=== PATIENT | male | born 1960 | race Caucasian/White ===

== ENCOUNTER 2019-07-06 07:50 | Day surgery (SDC) | payer BC ==
[~2019-07-06 07:50] MED LIST: Lactated Ringers 1,000 ML IV SCH; Sodium Chloride 0.9% 10 ML Syringe FLUSH PRN
[2019-07-06] MEDS ORDERED: Lactated Ringers 1,000 ML IV SCH (08:30)
[2019-07-06] MEDS ORDERED: fentaNYL 100 MCG/2 ML SDV ONE (09:10)
[2019-07-06] MEDS ORDERED: Propofol 200 MG/20 ML SDV ONE ×2 (09:10→10:25)
[2019-07-06 11:06] VITALS: BP 113/77; PULSE 64
--- NOTE | 2019-07-06 17:26 | OR ---
DATE OF SURGERY: 07/06/2019. REFERRING PROVIDER: Keisha Willett DO. PRE-OPERATIVE DIAGNOSES: Positive history of colon polyps with previous rectal adenoma in 12/2013. This is the second colonoscopy. There is no known family history of colon cancer or colon polyps. POST-OPERATIVE DIAGNOSES: Normal appearing colon and distal ileum. PROCEDURE: Colonoscopy. SURGEON: Asaf España M.D. ANESTHESIA: Monitored anesthesia care. BOWEL PREP: Fair to good. The patient did have corn noted in the rectal area and distal sigmoid. Otherwise, visualization of colon was good. Anupam is a 59-year-old male who was brought to the endoscopy suite after discussing risks and benefits of the procedure. Informed consent was obtained for conscious sedation and colonoscopy with or without biopsy and/or polypectomy. We also discussed possibility of missed lesions. Pre-procedure exam was unremarkable. IV, oxygen, and monitors were placed. The patient was placed in the left lateral decubitus position. Sedation was administered and a digital rectal exam was performed which was unremarkable. Colonoscope was passed into the rectum and slowly advanced all the way to the cecum. Cecum was viewed and photographed. Ileocecal valve was intubated and distal ileum was normal in appearance. The colonoscope was slowly withdrawn and the mucosa was closed observed in a direct circumferential manner. The ascending colon was unremarkable. The transverse colon was unremarkable. The descending colon was unremarkable. The sigmoid colon was unremarkable. Retroflexion was performed and rectal mucosa was unremarkable. Scope was removed. The patient tolerated the procedure well. The patient was monitored until that baseline status. Discharge instructions were reviewed and the patient was discharged in good condition. COMPLICATIONS: None. TOTAL TIME: 18 minutes. ESTIMATED BLOOD LOSS: None. RECOMMENDATIONS/FOLLOW-UP: Would recommend repeating colonoscopy again in 5 years given his previous history of polyps. Also, of note, the patient was noted to have blowing 2 to 3/6 heart murmur noted at the mitral area. I encouraged him to discuss this with his PCP. He does not seem to be having any symptoms from it at this time. I would like to kindly thank Keisha Willett DO for this referral. DMB: 07/06/2019 11:11:30 MODL: 07/06/2019 17:17:00 /[id number]
== END 2019-07-06 11:55 | disposition home or self-care (01) ==
LOC: VM.SDS 07:50
PROVIDERS: ATTEND Family Medicine
DX: Z12.11 Encounter for screening for malignant neoplasm of colon (principal); I10 Essential (primary) hypertension; E78.5 Hyperlipidemia, unspecified; E78.00 Pure hypercholesterolemia, unspecified; E78.1 Pure hyperglyceridemia; R73.03 Prediabetes; Z86.010 Personal history of colon polyps; Z79.899 Other long term (current) drug therapy; Z79.82 Long term (current) use of aspirin
CPT/HCPCS: J2704; J3010; J7120